=== PATIENT | male | born 1950 | race Caucasian/White ===

== ENCOUNTER 2016-03-15 01:07 | Day surgery (SDC) | payer OTHER ==
[2016-03-15] VITALS (12 sets, daily range): BP systolic 123–140; BP diastolic 59–71; PULSE 59–74; RESP 11–18; O2SAT 90–97
--- NOTE | 2016-03-15 06:30 | NUR ---
ADMISSION NOTE MALE PT ADMITTED FOR HEART CATH. DISCUSSED PLAN OF CARE WITH PT AND . SEE ADMIT AND FLOW SHEET
[2016-03-15] MEDS ORDERED: AMLO10TA3 PO (06:39)
[2016-03-15] MEDS ORDERED: METO25TA99 PO (06:39)
[2016-03-15] MEDS ORDERED: CHOL100043 PO (06:39)
[2016-03-15] MEDS ORDERED: losartan PO (06:39)
[2016-03-15] MEDS ORDERED: LIP40 PO (06:39)
[2016-03-15] MEDS ORDERED: HYDR25TA4 PO (06:39)
[2016-03-15] MEDS ORDERED: MELO-253 PO (06:39)
[2016-03-15] MEDS ORDERED: NITR0.4T6 SL (06:39)
[2016-03-15] MEDS ORDERED: METF500T4 PO (06:39)
[2016-03-15] MEDS ORDERED: ASPI-973 PO (06:39)
[2016-03-15 07:14] LABS: BASOPHILS % (AUTO) 0.4 % (0-3); EOSINOPHILS % (AUTO) 2.9 % (0-5); Mean Corpuscular Hemoglobin 30.8 pg (27.0-35.0); Mean Corpuscular Volume 90.7 fL (81-100); NEUTROPHILS % (AUTO) 53.3 % (40-74); Platelet Count 255 bil/L (150-400)
[2016-03-15] MEDS ORDERED: 0.9% Sodium Chloride 1,000 ML ONE (07:46)
[2016-03-15] MEDS ORDERED: Heparin 1,000 Units/500 mL NS Premix IV ONE (07:50)
[2016-03-15] MEDS ORDERED: Nitroglycerin 50,000 mcg/250 mL D5W Premix IV ONE (07:50)
[2016-03-15] MEDS ORDERED: Heparin 1,000 Unit/mL 10 mL Inj ONE (07:51)
[2016-03-15] MEDS ORDERED: Heparin 5,000 Units/500 mL NS Premix IV ONE (07:51)
[2016-03-15] MEDS ORDERED: fentaNYL-PF 50 mCg/mL 2 mL Inj ONE ×2 (08:35→09:23)
--- NOTE | 2016-03-15 10:09 | PCM.CVCATH ---
Cardiac Cath Report Date of Service Mar 15, 2016 Primary Indication Angina and abnormal stress test in a patient with diabetes Procedure coronary angiography, left heart cath Vascular Access Right radial artery using 6 Fr slender sheath, closure with TR band Right femoral artery using 6Fr sheath, closure with perclose suture. Diagnostic Catheters Left main: JL4, 6Fr from groin approach. Left main has high takeoff and Vale 4.5 and JL4 both could not engage the left main artery from right radial artery approach RCA: Vale 4.5, 5 Fr Procedure Details Coronary angiography details: The patient was brought to the cardiac catheterization lab in the fasting state. Patient was laid supine on the cardiac catheterization table and the right forearm was prepped and draped in the usual sterile fashion. One percent Xylocaine was infiltrated over the right radial artery. Vascular access was then achieved under ultrasound guidance. Guide wire was used to advance the catheter through the sheath and up into aortic sinuses. Right coronary artery was engaged after multiple attempts using Vale 4.5, JL4 and JL3.5 catheters. Study was switched to groin. One percent Xylocaine was infiltrated into the right femoral vessels. Next, a sheath was then placed in the right common femoral artery by the modified Seldinger technique. Guide wire was used to advance the catheter through the sheath and up into aortic sinuses. After coronary angiography was completed, guide wire was advanced through the catheter ahead of the tip of the catheter and the guide wire along with the catheter were pulled together out of the sheath. Medications/Fluoro Time Medications administered: 1.Fentanyl: 200 mcg IV 2. Midazolam: 4 mg IV 3. Heparin: 7000 units IV 4. Nitroglycerin: 400 mcg IA Fluoroscopy Time: 800-900 mGy Contrast (Isovue): 80 mls Blood loss: 10 mls Findings 1) Coronary angiography: Right dominance a. Left main has 10% stenosis at the ostium and 30-40% stenosis in the distal vessel. b. LAD has 90% calcific stenosis in the proximal vessel that extends to the mid vessel. The apical LAD has mild luminal irregularities. c. LCx has mild luminal irregularities d. RCA is normal caliber vessel with 80% stenosis in the distal RCA and 80% stenosis of the proximal PDA. The proximal segment of the upper branch of medium sized posterolateral branch also has 80-90% stenosis. 2) Left Heart catheterization: a. LVEDP is normal at 10 mmHg. b. No significant transaortic gradient on catheter pull-back. 3) Right femoral angiography: Right common femoral arteriotomy, below the inferior hypogastric artery. Complications There were no periprocedural complications identified. Summary 1) Two vessel obstructive disease in the LAD and RCA territories 2) Moderate non-obstructive disease in the left main artery Recommendations Proceed to cardiac surgery for urgent CABG copies to: Jenn Delaney MD, Bhrigu R MD Mar 15, 2016 10:09 Complications There were no periprocedural complications identified. Kamaljit Ward MD Mar 15, 2016 10:09
--- NOTE | 2016-03-15 10:15 | NUR ---
POST PROCEDURE NOTE RETURNED FROM [facility]. SEE FLOW SHEET
--- NOTE | 2016-03-15 14:45 | NUR ---
DISCHARGE NOTE INSTRUCTIONS GIVEN. IVS LEFT IN PER REQUEST FROM RN AT [facility]. REPORT GIVEN. TO REPORT TO [facility].
[2016-06-18] MEDS ORDERED: METO-274 PO (13:20)
[2016-06-18] MEDS ORDERED: FERR325T39 PO (13:20)
[2016-06-18] MEDS ORDERED: LORA-303 PO (13:20)
[2016-06-18] MEDS ORDERED: LOSA25TA21 PO (13:20)
== END 2016-03-15 23:59 | disposition home or self-care (01) ==
LOC: SOUO 01:07
PROVIDERS: ATTEND Internal Medicine Cardiovascular Disease
DX: I25.118 Atherosclerotic heart disease of native coronary artery with other forms of angina pectoris (principal); E11.22 Type 2 diabetes mellitus with diabetic chronic kidney disease; I12.9 Hypertensive chronic kidney disease with stage 1 through stage 4 chronic kidney disease, or unspecified chronic kidney disease; N18.9 Chronic kidney disease, unspecified; E78.5 Hyperlipidemia, unspecified; Z79.84 Long term (current) use of oral hypoglycemic drugs; Z79.82 Long term (current) use of aspirin; Z86.73 Personal history of transient ischemic attack (TIA), and cerebral infarction without residual deficits
CPT/HCPCS: 36415; 80048; 85025; 93458; C1760; C1769; C1887; C1894; J1644; J2250; J3010; Q9967

== ENCOUNTER 2016-06-21 00:32 | Day surgery (SDC) | payer OTHER ==
[~2016-06-21] VITALS: Ht 172.7 cm; Wt 75.5 kg
[2016-06-21] VITALS (13 sets, daily range): BP systolic 124–144; BP diastolic 60–72; PULSE 55–71; RESP 12–19; O2SAT 93–98
[~2016-06-21 00:32] MED LIST: ASPI-973 PO; FERR325T39 PO; HYDR25TA4 PO; LIP40 PO; LORA-303 PO; LOSA25TA21 PO; METF500T4 PO; METO-274 PO; NITR0.4T6 SL
[2016-06-21 12:10] LABS: BASOPHILS % (AUTO) 0.2 % (0-3); EOSINOPHILS % (AUTO) 1.5 % (0-5); MONOCYTES % (AUTO) 7.6 % (4-12); Mean Corpuscular Hemoglobin 29.1 pg (27.0-35.0); Mean Corpuscular Volume 89.6 fL (81-100); NEUTROPHILS % (AUTO) 56.1 % (40-74); Platelet Count 256 bil/L (150-400)
[2016-06-21] MEDS ORDERED: Heparin 1,000 Units/500 mL NS Premix IV ONE (12:28)
[2016-06-21] MEDS ORDERED: Heparin 10,000 Unit/1,000 mL NS Premix IV ONE (12:28)
[2016-06-21] MEDS ORDERED: Heparin 1,000 Unit/mL 10 mL Inj ONE (12:29)
--- NOTE | 2016-06-21 12:40 | NUR ---
SHARI admit Admitted to [facility] about 1135. VSS. Denies pain. Stated mild chest discomfort that spontaneously resolved on lying down. Tele SB with 1st degree AVB. IV's started and labs sent. See EMR for further info and assessment. Procedure and recovery reviewed and questions answered. Pt. to garden labourer about 1240. Addendum: 06/21/16 at 1556 by SELENA HERRERA RN BG 118 per fingerstick.
[2016-06-21] MEDS ORDERED: fentaNYL-PF 50 mCg/mL 2 mL Inj ONE ×2 (12:53→14:23)
[2016-06-21] MEDS ORDERED: Labetalol 5 mg/mL 20 mL Inj ONE (13:40)
--- NOTE | 2016-06-21 15:04 | PCM.CVCATH ---
Cardiac Cath Report Date of Service June 21, 2016 Primary Indication Angina, abnormal stress test after 2V CABG Procedure coronary angiography, left heart cath Vascular Access Right femoral arteryusing 5 Fr sheath, closure with manual hold. Diagnostic Catheters Left main: JL 3.5, 5Fr (after failure with JL 4, 5Fr) RCA: JR4, 5Fr SVG to RCA graft: JR4, 5Fr ROJAS graft: BERTHA 5Fr (after failure to engage with JR4 catheter) Procedure Details Coronary angiography details: The patient was brought to the cardiac catheterization lab in the fasting state. Patient was laid supine on the cardiac catheterization table and the right groin was prepped and draped in the usual sterile fashion. One percent Xylocaine was infiltrated into the right femoral vessels. Next, a sheath was then placed in the right common femoral artery by the modified Seldinger technique. Guide wire was used to advance the catheter through the sheath and up into aortic sinuses. After coronary and bypass angiography were completed, guide wire was advanced through the catheter ahead of the tip of the catheter and the guide wire along with the catheter were pulled together out of the sheath. Medications/Fluoro Time Medications administered: 1.Fentanyl: 150 mcg IV 2. Midazolam: 3 mg IV 3. Heparin: 5000 units IV Fluoroscopy Time: 18.7 minutes, 1244 mGy Contrast (Isovue): 150 mls Blood loss: 10 mls Findings 1) Coronary and bypass angiography: Right dominant coronary anatomy a. Left main has 10-20% ostial stenosis and 50-60% stenosis in the mid to distal vessel b. LAD is heavily calcific with diffuse 80-90% stenosis with XAVIER 1 to XAVIER 2 flow. No retrograde flow to the ROJAS graft noticed. c. LCx is medium caliber with mild luminal irregularities. d. RCA is normal caliber vessel with 99% distal RCA stenosis. e. SVG to PDA graft is open with no significant angiographic disease in the SVG graft or the PDA artery f. ROJAS to the LAD graft is open but the anastomosis is moderately diseased and the LAD past anastomosis is also severely diseased. 2) Left Heart catheterization: a. LVEDP is elevated at 26 mmHg. b. No significant transaortic gradient on catheter pull-back. 3) Right groin: common femoral arteriotomy just at the bifurcation of the superficial femoral and profunda branches. Complications There were no periprocedural complications identified. Summary 1) Severe [place] coronary artery disease with LCx still not revascularized. The distal LAD after ROJAS anastomosis remains severely diseased. 2) Patent bypass grafts (ROJAS and SVG) Recommendations 1) Maximize medical management. 2) Refer to cardiology for 2nd opinion. copies to: Jenn Delaney MD, Bhrigu R MD June 21, 2016 15:04 Kamaljit Ward MD June 21, 2016 15:04
--- NOTE | 2016-06-21 15:56 | NUR ---
Received Received from oven laborer about 1510. Pt. had post procedure hematoma in woods laborer, now full but soft. Denies pain. VSS. Tele SR. Taking po fluids well. Dr. Ward in and ice pack ordered and applied to groin. Awaiting orders. Continue to monitor per protocol.
[2016-06-21] MEDS ORDERED: RANO500T3 PO (16:47)
--- NOTE | 2016-06-21 20:10 | NUR ---
Discharge VSS and right groin hematoma unchanged. Bedrest complete at 1999. Up to void and ambulate in bolanos. States slightly sore but no acute pain. Discharge instructions given, see sheets, verbalizes understanding. IV's discontinued intact. Discharged ambulatory with all belongings and in no acute distress.
== END 2016-06-21 23:59 | disposition home or self-care (01) ==
LOC: SOUO 00:32 → EDSTATUS 12:46 → SOUO 23:59
PROVIDERS: ATTEND Internal Medicine Cardiovascular Disease
DX: I25.119 Atherosclerotic heart disease of native coronary artery with unspecified angina pectoris (principal); I25.729 Atherosclerosis of autologous artery coronary artery bypass graft(s) with unspecified angina pectoris; I25.5 Ischemic cardiomyopathy; I10 Essential (primary) hypertension; E78.5 Hyperlipidemia, unspecified; I50.20 Unspecified systolic (congestive) heart failure; E11.9 Type 2 diabetes mellitus without complications; F41.8 Other specified anxiety disorders; Z79.82 Long term (current) use of aspirin; Z79.84 Long term (current) use of oral hypoglycemic drugs; Z86.73 Personal history of transient ischemic attack (TIA), and cerebral infarction without residual deficits
CPT/HCPCS: 36415; 80048; 85025; 93459; 99152; 99153; C1769; J1644; J2250; J3010; Q9967

== ENCOUNTER 2016-07-10 04:56 | Inpatient (IN) | payer OTHER ==
[2016-07-10] VITALS (11 sets, daily range): BP systolic 103–172; BP diastolic 61–81; PULSE 51–67; RESP 13–19; O2SAT 95–98
[~2016-07-10] VITALS: Ht 172.7 cm; Wt 78.9 kg
[~2016-07-10 04:56] MED LIST changes: +RANO500T3 PO
[2016-07-10] MEDS ORDERED: Senna-Docusate 8.6-50 mg Tablet PO PRN (06:25)
[2016-07-10] MEDS ORDERED: Alum-Mag Hydrox-Simeth 30 mL Suspension PO PRN (06:25)
[2016-07-10] MEDS ORDERED: Polyethylene Glycol (PEG) 17 Gm Powder PO PRN (06:25)
[2016-07-10] MEDS ORDERED: Ondansetron 2 mg/mL 2 mL Inj IVPUSH PRN (06:25)
[2016-07-10] MEDS ORDERED: Atropine 1 mg/10 mL (Code) Syringe IVPUSH PRN (06:25)
[2016-07-10] MEDS ORDERED: Nitroglycerin 50,000 mcg/250 mL D5W Premix IV ONE (06:33)
[2016-07-10] MEDS ORDERED: Heparin Protocol Boluses IVPUSH PRN (06:50)
[2016-07-10 07:13] LABS: BASOPHILS % (AUTO) 0.4 % (0-3); EOSINOPHILS % (AUTO) 1.6 % (0-5); MONOCYTES % (AUTO) 4.9 % (4-12); Mean Corpuscular Volume 91.3 fL (81-100); NEUTROPHILS % (AUTO) 66.9 % (40-74); Platelet Count 265 bil/L (150-400)
[2016-07-10] MEDS: 0.9% Sodium Chloride 1,000 ML IV SCH ×3 (07:22→23:48)
[2016-07-10] MEDS: Heparin 25K Unit/500mL 0.45 NS 25,000 UNIT in IV Premix 1 EACH IV SCH (07:23)
[2016-07-10] MEDS: Sodium Chloride LOK Flush 10 mL Syringe IVFLUSH SCH ×3 (07:24→23:48)
[2016-07-10 08:03] LABS: Creatine Kinase 73 U/L (21-232); Magnesium 1.8 mg/dL (1.6-2.6)
[2016-07-10] MEDS ORDERED: ISOS60TA2 PO (08:16)
[2016-07-10] MEDS ORDERED: LORazepam 0.5 mg Tablet PO PRN (13:00)
--- NOTE | 2016-07-10 13:10 | PCM.HPMED ---
Subjective Date of Service Jul 10, 2016 Primary Provider: Admitting Physician: Sunny Tran MD Primary Care Physician: Jenn Delaney MD Attending Physician: Sunny Tran MD Chief Complaint: Chest pain History of Present Illness: 65 y/o with past medical history of CAD sp CABG, hypertension, NIDDM type II , hypertension, h/o TIA, hypercholesterolemia presented initially to [facility] emergency department complaining of chest pain . Patient stated he had chest pain last night around 11 pm . He took his usual nitroglycerine with some relief but shortly after he continue to have chest pain and took another nitro. He stated he usually get good relief with one nitro and was also placed recently on Isosorbide mononitrate by his primary application spec and hes has been complaint with it. He decided to go to the ER as his chest continue to persist after a total of 6 doses of nitroglycerine . In the ER he was placed on nitro drip with improvement. He describes the chest pain as Pressure like , retrosternal, non radiating , no aggravating factor. Patient usually walks over a mile daily and he said he experiences little to no angina with activities . He is known to have extensive CAD . He had a recent cardiac cath done with his primary application spec Dr Ward and was referred to the for higher level of care. Per patient he has an appointment on the July/2016. Patient was transferred here for cardiology evaluation. EKG shows old infarcts and initial troponin is negative. Review of Systems: Review of system is pertinent for chest pain , otherwise a comprehensive review 10 points is negative Allergies Coded Allergies: No Known Allergies (Unverified , 06/21/16) Home Medications Aspirin 81 mg Po daily Atorvastatin 80 mg PO daily HCTZ 12.5 mg PO daily Ferrous Sulfate 25 mg PO daily Isosorbide mononitrate ER 60 mg PO daily Lorazepam 0.5 mg Q6H PRN for anxiety Metformin 859 mg PO twice daily PMH 1. Hypertension 2 CAD s/p CABG 3. Type III Diabetes 4. Hypercholesterolemia 5. Hypertension 6. H/o TIA Surgical History CABG Family History Reviewed and is non contributory Social History Hx Alcohol Use: Yes Alcoholic Drinks Per Day: 1-2 drinks/day - beer or wine Hx Substance Use: No Smoking Status: Never Smoker Living Arrangement: with Family Exam Vital Signs Vital Sign - Last Date Time Temp Pulse Resp B/P Pulse Ox O2 Delivery O2 Flow Rate FiO2 07/10/16 11:57 36.6 58 15 140/77 97 Room Air Exam Gen : Well nourished male . In bed comfortably . NAD HEENT : Normocephalic , MACI. Sclerae is anicteric Mouth : Moist oral mucosae, no oral thrush Neck : Supple, no JVD , no carotid bruit , trachea is midline Chest : No deformity. Midline surgical scar compatible with h/o CABG . Normal respiratory effort Lung : Clear bilaterally, no crackles, no wheezing. Heart : S1S2, RRR, no gallop Abdomen : Non tender, non distended . BS normal all quadrants Ext : No edema, No cyanosis Neuro : Grossly non focal. AAO x 3 Lab and Diagnostics Result Diagram: 07/10/1664407/10/16 0645 X-Rays, CTs and MRIs Chest X-ray pending. Ekg reviewed : Non specific .No ST changes Assessment & Plan 1. Unstable Angina 2. H/o CAD s/p CABG 3. Type II diabetes ( Non insulin depending) 4. Hypertension 5. H/o TIA 65 y/o with extensive h/o of CAD s/p CABG , [facility] to [facility] for unstable angina . Patient is hemodynamically and clinically stable . On heparin drip and nitroglycerine drip . Patient still with angina but improved he said. Consider Ranexa once off Nitro drip . He was on Isosorbide prior admission Continue statins , BB, ARB, aspirin. Case discussed with quality assurance consultant application spec Dr. Fitzgerald , who will see the patient in consolation. Dr Ward is his primary application spec. Patient stated he had a recent cardiac catheterization done and was referred to the [facility] for further evaluation as , thing the management and higher level of care given the extension of his CAD . In any case patient has an appointment for the 20 of July at Start Diabetic diet and sliding sale insulin with coverage. Hold Metformin Home medications reviewed and reconciled This is an initial plan of care for now and will be adjust per clinical course and per cardiology recommendation Pain Evaluation: Adequate Pain Control VTE Prophylaxis: Other (On heparin drip ) Resuscitation Status: CPR: Attempt Resuscitation Time spent 75 minutes Phil Koenig MD Jul 10, 2016 13:10
[2016-07-10 13:38] LABS: Creatine Kinase 74 U/L (21-232)
[2016-07-10 13:39] LABS: TROPONIN T < 0.010 ug/L (0.0-0.011)
--- NOTE | 2016-07-10 14:47 | DRSVH ---
PROCEDURE: X-RAY CHEST ONE VIEW, PORTABLE ([id number]) INDICATIONS: Chest pain TECHNIQUE: One view of the chest was acquired. COMPARISON: None. FINDINGS: Surgical changes and devices: Status post CABG procedure. Lungs and pleura: No pleural effusions or pneumothorax. Lungs are clear. Mediastinum: Mediastinal contours appear normal. Heart size is normal. Bones and chest wall: No suspicious bony lesions. Overlying soft tissues appear unremarkable. IMPRESSION: No acute cardiopulmonary disease process. Dictated by: Sweta Padilla MD, PhD on 07/10/2016 at 14:34 Approved by: Sweta Padilla MD, PhD on 07/10/2016 at 14:34
--- NOTE | 2016-07-10 17:32 | NUR ---
Admit/Nitro/Hep the pt was admitted to P[facility]U as an IMCU pt at 0630. At shift trade, the pt was at 15mcg Nitro gtt, and was up to 25 this afternoon to relieve persistent chest pain. After a consult with Dr. Fitzgerald, we are titrating the nitro down in an attempt to DC the pt home for a possible follow up with . Heparin is running on the cardiac protocol at 1100.
[2016-07-10] MEDS: MeTOProlol XL 50 mg ER24 Tablet PO SCH (20:00)
--- NOTE | 2016-07-10 20:19 | CONS ---
[address] [address] CONSULTATION REPORT PATIENT: AIDA CARUSO : 1950 MR#: [id number] ADMIT: 07/10/2016 JOB ID: [id number] DATE OF SERVICE: 07/10/2016 REASON FOR CONSULT: I am asked to consult on this patient given unstable anginal symptoms. HISTORY OF PRESENT ILLNESS: The patient is a 65-year-old man with history of coronary disease, diabetes mellitus, hypertension, history of TIA, and elevated lipids. He has a history of coronary disease which before his cardiac cath and bypass procedure was very limiting. He tries to remain very active and his symptoms got progressively worse to the point where he could barely do anything without chest discomfort. This resulted in a cardiac catheterization which revealed a high-grade LAD stenosis as well as a distal right coronary artery stenosis. There was no significant left main disease and no significant circumflex disease. Because of the diffuse nature of the disease, the patient was sent for coronary bypass grafting. Apparently the procedure was quite difficult but they were able to get a ROJAS tied into the left anterior descending artery. The right coronary artery was diffusely diseased and targets were not felt to be very good. However, because of instability, a reverse saphenous vein graft was placed to the left ventricular extension branch. The patient said that since surgery he has actually been participating in rehab and as far as walking on flat surfaces he has had no problem at all. It is when he is going up hills that he gets the chest discomfort. As a result of this, he had Imdur added which has helped to some extent, although he will still get some chest pain if her really forces himself up a hill. He had a repeat stress test performed in June 2012. I have reviewed the images myself and it looks like there is ischemia in the inferoseptal area, as well likely in the anterolateral segment. The EF was estimated at 40%. Apparently the patient also had abnormal response to stress as well as EKG changes. This led to cardiac catheterization and revealed a widely patent ROJAS to LAD. Again no significant disease of the left main or circumflex artery. There was a widely patent graft which goes to the extension branch, not to the PDA, and the nome right coronary artery is nearly occluded at the entrance at the bifurcation. There is evidence for some collateral filling of the PDA. On limited views of the left anterior descending artery it appears there is a diagonal branch which is not bypassed but comes off after high-grade stenosis of the left anterior descending artery. The ROJAS to LAD is widely patent and the left anterior descending artery does fill retrograde up to the level of occlusion. Unfortunately the images are transient and it is not apparent to me that the left anterior descending fills retrograde The patient came into the hospital this time because unlike the usual episodes of chest discomfort he started getting chest discomfort that was not relieved with nitroglycerin. He has been placed on a nitro drip with relief of symptoms. He tells me has had about 1/10 discomfort at this time He has also been getting chest discomfort at night. He has a history of sleep apnea but has not used CPAP for a while now. He says he lost weight after bypass and did not feel that he needed it. He denies any problems with orthopnea, PND, lower extremity edema, palpitations, presyncope, syncope PAST MEDICAL HISTORY/PROBLEM LIST: 1. Hypertension. 2. History of coronary disease, status post bypass. 3. Diabetes. 4. Hyperglycemia and hypertension. 5. Also has a history of TIA. MEDICATIONS: At home included: 1. Aspirin 81 mg a day. 2. Atorvastatin 80 mg daily. 3. Hydrochlorothiazide 12.5 daily. 4. Ferrous sulfate. 5. Imdur 60 mg daily. 6. Lorazepam 0.5 q.6 p.r.n. anxiety. 7. Metformin. ALLERGIES: No known drug allergies. SOCIAL HISTORY: Never smoker. Drinks maybe 1-2 drinks at most a day. FAMILY HISTORY: No early coronary disease. REVIEW OF SYSTEMS: Overall health: No fevers, chills, night sweats, or weight loss. GI: No problems with ulcers or blood in his stool. : No dysuria, hematuria. Pulmonary: No increased shortness of breath. No history of asthma or wheezing. Neuro: History of TIA but no symptoms at this time. No chronic headaches. Endocrine: No heat or cold intolerance. Is treated for diabetes mellitus. Musculoskeletal: No joint issues. Derm: No rashes or skin breakdown. ENT: No sore throat, difficulty swallowing. Ophtho: No acute vision issues. Heme: No easy bruising or bleeding. Psych: No acute issues. All other review of systems on a 12-point review of system are negative. PHYSICAL EXAMINATION: His blood pressure is 140/77. He is afebrile. Heart rate 58, sats are 97% on room air. General: In no acute distress. Speaking in full sentences without apparent shortness of breath. Head and neck exam: Normocephalic, atraumatic. I do not appreciate obvious JV distention. Heart exam: Regular rate and rhythm. I do not appreciate murmurs, gallops, rubs appreciated. Lungs sound clear. Back: No CVA tenderness to palpation. Abdomen soft, nontender. Vascular: Carotids without bruits appreciated. Skin: No rashes or breakdown. Neuro: Alert and oriented x3. Gait is not tested. Psych: Appropriate mood and affect. ENT: Mucous membranes moist. No erythema in the oropharynx. Ophtho: Vision grossly intact. CURRENT MEDICATIONS: Include: 1. Aspirin 81 mg a day. 2. Heparin. 3. Metoprolol 100 mg b.i.d. 4. Losartan 25 daily. 5. Imdur 60 mg was being held while he is on IV nitrates. 6. Lipitor 80 mg a day. LABORATORIES: Show white count 9.7, H and H 12.4 and 37.8, platelets of 265,000. Chemistry shows a sodium 141, potassium 4.2, chloride and bicarb 103 and 20, respectively. BUN and creatinine 15 and 0.65. Troponins all negative. IMAGING: Chest x-ray shows no acute cardiopulmonary disease. Stress imaging as noted. Cath as noted. EKG shows sinus rhythm, subtle changes in the inferior leads. IMPRESSION: The patient has a history of bypass grafting but only received a left internal mammary artery to left anterior descending. The bypass graft to the left extension branch was done acutely in the setting of being hemodynamically unstable. Posterior descending artery is not grafted. He has evidence for inferior septal ischemia on a stress test. He has probable evidence for anterolateral ischemia and this may be related to a diagonal branch which is fed by the nome vessel antegrade. My sense is that his symptoms may be related to the PDA which is a looking near occluded. It now has collaterals. I am not sure if the unbypassed diagonal is contributing PLAN: 1. He has ruled out by serial cardiac markers. Again my sense is that the PDA may be causing most of his problems (not sure if the diagonal is a contributor) Otherwise, he has reasonable revascularization with a ROJAS to LAD and extension branch. No significant disease of the nome circ He has an appointment at [facility] in the middle of July to discuss possible repeat cath and interventions. I told him that the right coronary artery, at least in the area of interest was fairly small in caliber and they could possibly do a balloon angioplasty or put a stent in there but it would likely be challenging. I am not certain if they would attempt to stent the diagonal branch which is also relatively small in caliber. He feels that the [facility] would provide more advanced care and he has already been referred there so he would like to be considered to be discharged and go there for followup. 2. Try to get him off his nitro drip. We can add back his isosorbide mononitrate. We might need to increase this, if possible. 3. I think we then should see if he can walk around without chest pain, chest pressure, and make sure that he does not have any chest discomfort at rest. I have advised him that he needs to go back on CPAP because I think some of his symptoms at night might be related to hypoxia related to obstructive sleep apnea. 4. If he does not do well off nitroglycerin or has recurrent unstable symptoms, options would be to send him to the [facility] to see if they would be able to place stents in the vessels discussed above. Other options would be for us to take him back to the cath laboratory and investigate those options here, but again the patient is under the impression that it will be a better circumstance for him to go to the [facility]. I spent an hour going over the patient's previous stress test, cardiac catheterizations, speaking with him, reviewing his EKG, examining him, and discussing his situation at length, including the options. FROYLAN
[2016-07-10] MEDS: Nitroglycerin 50 mg/250 mL D5W Premix IV SCH (21:45)
[2016-07-11] MEDS: Nitroglycerin 50 mg/250 mL D5W Premix IV SCH (03:18)
[2016-07-11] MEDS: Heparin 25K Unit/500mL 0.45 NS 25,000 UNIT in IV Premix 1 EACH IV SCH (03:24)
[2016-07-11 03:30] VITALS: BP 114/61; PULSE 51; RESP 15; O2SAT 96
--- NOTE | 2016-07-11 05:31 | NUR ---
Chest pain/Nitro gtt Nitro gtt at 15 mcg/min during start of shift. Weaned down to 10mcg/min. Pt started to report chest discomfort as high as 7-8/10 after about 30-40 mins. He started getting anxious and in distress. Hypertensive. Increased nitro gtt as high as 75 mcg/min. 1 mg of Morphine given. Pt reported chest pain free during reassessment. Dr Fitzgerald made aware with new orders noted. No c/o headache. Maintained Nitro gtt rate at 70 mcg/min at this time. Maintaining Map > 65. SB mid 40s to 50s tonight. Addendum: 07/11/16 at 0649 by OMAR LOPEZ RN No c/o chest pain since last night. Pt denies any dizziness or headache.
[2016-07-11 05:48] VITALS: PULSE 51
[2016-07-11 08:16] VITALS: BP 122/63; PULSE 57; RESP 21; O2SAT 98
[2016-07-11] MEDS: Sodium Chloride LOK Flush 10 mL Syringe IVFLUSH SCH (08:19)
[2016-07-11] MEDS: MeTOProlol XL 50 mg ER24 Tablet PO SCH (08:28)
[2016-07-11] MEDS ORDERED: Isosorbide Mononitrate 60 mg ER24 Tablet PO SCH (08:30)
[2016-07-11 10:15] VITALS: PULSE 56
[2016-07-11 12:41] VITALS: BP 118/62; PULSE 53; RESP 19; O2SAT 95
--- NOTE | 2016-07-11 14:07 | PCM.PNMED ---
Subjective Date of Service Jul 11, 2016 Subjective Patient seen and examined at bedside with assigned nurse He still with severe chest pain and continue on nitroglycerine drip. No shortness of breath, no fever, no chills. Patient is requesting transfer to [facility] for higher level of care. Transfer is being arranged cardiology team Exam Vital Signs Vital Sign - Last Date Time Temp Pulse Resp B/P Pulse Ox O2 Delivery O2 Flow Rate FiO2 07/11/16 12:41 53 19 118/62 95 Room Air 07/11/16 08:16 36.9 Intake and Output 07/10/16 07/10/16 07/11/16 Cumulative From/Thru 15:00 23:00 07:00 07/10/16 06:47 - 07/11/16 06:44 Intake Total 700 ml 2413 ml 3113 ml Output Total 700 ml 790 ml 1490 ml Balance 0 ml 1623 ml 1623 ml Intake Oral 700 ml 340 ml 1040 ml IV Total 2073 ml 2073 ml Output Urine Total 700 ml 790 ml 1490 ml # Bowel Movements 0 0 Exam Gen : . In bed comfortably . NAD . AAOx 3 HEENT :MACI. Sclerae is anicteric Mouth : Moist oral mucosae, no oral thrush Neck : Supple, no JVD Chest : Normal respiratory effort Lung : Clear bilaterally, no crackles, no wheezing. Heart : S1S2, RRR, no gallop Abdomen : Benign . BS normal all quadrants Ext : No edema, No cyanosis , no calf tenderness Neuro : AAO x 3, non focal IVs and Medications Medications Reviewed: Medications were reviewed in detail Lab and Diagnostics Result Diagram: 07/11/1645 07/10/1645 X-Rays, CTs and MRIs Chest X-ray pending. Ekg reviewed : Non specific .No ST changes Assessment & Plan 1. Unstable Angina 2. H/o CAD s/p CABG 3. Type II diabetes ( Non insulin depending) 4. Hypertension 5. H/o TIA 65 y/o with extensive h/o of CAD s/p CABG , [facility] for unstable angina . Patient is hemodynamically and clinically stable but still with severe angina . He continued on nitro drip at [facility] this morning . BP so far holding with systolic around 120. . Discused with cardiology Dr Fitzgerald , potentially to be transferred to once bed available. Arrangement in process Continue statins , BB, ARB, aspirin. Dr Ward is his primary net application architect. Patient stated he had a recent cardiac catheterization done and was referred to the [facility] for further evaluation as Dr, thing the management and higher level of care given the extension of his CAD . Diabetic diet and sliding sale insulin with coverage for diabetic control. Hold Metformin Home medications reviewed and reconciled ( See orders Hoepfully we can wean him off Nitroglycerine drip , or to a lover dose to facilitate transfer Patient is otherwise hemodynamically stable and ruled out for ACS with serial troponin VTE Prophylaxis: Other (On heparin drip ) Resuscitation Status: CPR: Attempt Resuscitation Time spent 35 minutes Phil Koenig MD Jul 11, 2016 14:07
--- NOTE | 2016-07-11 14:13 | PROG NOTE ---
[address] [address] PROGRESS NOTE PATIENT: AIDA CARUSO : 1950 MR#: [id number] ADMIT: 07/10/2016 JOB ID: [id number] DATE: 07/11/2016 CHIEF COMPLAINT: The patient came in with unstable anginal symptoms. EVENTS: Later last night after we were trying to titrate down the nitroglycerin, the patient developed acute worsening of his chest pain which required increased backup of the nitroglycerin drip. He was also given a dose of morphine. EKG today shows some T-wave changes in the high lateral leads. He continues to show Q-waves inferiorly. He is doing well without chest pain at this time. Troponins were not sent. CURRENT MEDICATIONS: Include: 1. Losartan 25 daily. 2. Hydrochlorothiazide 12.5 daily. 3. Aspirin 81 mg a day. 4. Heparin drip. 5. Nitroglycerin drip. 6. Morphine p.r.n. 7. Metoprolol succinate 100 b.i.d. It was held this morning due to bradycardia. He is not on Imdur right now. It is being held because he is on nitroglycerin drip. 8. Lipitor 80 mg q.h.s. LABORATORY DATA: Show H and H 11.3 and 35.2. Chemistry shows lipid panel with triglycerides 94, LDL 53, and HDL 47. TSH 2.4. No new imaging today. PHYSICAL EXAMINATION: Blood pressure is 122/63, heart rate 57, sats are 98% on room air. General: In no acute distress. Speaking in full sentences without apparent shortness of breath. Head and neck exam: Normocephalic, atraumatic. Neck: No JV distention. Heart exam: Regular rate and rhythm. Lungs clear. Abdomen is soft. Back: No CVA tenderness to palpation. Extremities: Warm without edema. Vascular: No carotid bruits appreciated. Neuro: Alert and oriented x3. Gait is not tested. Psych: Appropriate mood and affect. EKG is discussed. IMPRESSION: The patient has history of bypass surgery in March of 2016, and repeat stress imaging showed inferior ischemia, as well as lateral probably anterolateral ischemia. He has a nonrevascularized PDA and nonrevascularized diagonal branch. My suspicions originally was that the PDA was likely causing his symptoms given the large area of inferior ischemia that was noted on the stress test. Now, he has some flipped high lateral T-wave changes which may be related to lateral branch, possibly the diagonal. He has a patent ROJAS to LAD and a patent saphenous vein graft extension branch. PLAN: I discussed our options with the patient. I told him that we could try to get him down to the [facility] so he could get another opinion as to the ability to fix the vessels that may be causing his problems. If the PDA is in fact involved, it does look small. I think it is a possibility that with balloon angioplasty, the size of this will improve so that it could take a stent. I am not certain if the diagonal is causing symptoms. By review of the cath films, it did not look like the circumflex had any critical stenoses at all. The diagonal looks like it comes off after the stenosis in the LAD. After a long discussion, we agreed that I would try to get him transferred to the [facility]. I spent at least 3 hours speaking with various people at the [facility] transfer center, two attendings, to discuss his case, and he has been accepted for transfer there at this juncture. PLAN: 1. Transfer to [facility]. We will keep his current medications as they are. 2. We have provided them with the initial cath, the followup cath after bypass, as well as the nuclear images from June of 2016. We will await their recommendations/treatments, and he can follow up with his primary lawnmower repair mechanic, Dr. Ward, after that. Again, I spent at least 3 hours talking with the patient today and making multiple phone calls to arrange for his transfer to the [facility]. FROYLAN
--- NOTE | 2016-07-11 14:13 | NUR ---
Transfer The pt transferred to [facility] at 1415 for cardiac care. The pt left the unit with VSS and WNL for the pt. He left with NS at 80mLs/hr, heparin at 1175 units/hr and Nitro at 40mcg/hour. the pt left by ALS. Report called to [facility].
--- NOTE | 2016-07-12 17:12 | PCM.DC.MED ---
Discharge Summary Date of Service Jul 12, 2016 Dates of Hospitalization Date of Hospital Admission Jul 10, 2016 at 06:23 Date of Discharge: Jul 12, 2016 Providers: Admitting Physician: Sunny rTan MD Primary Care Physician: Jenn Delaney MD Attending Physician: Sunny Tran MD Diagnosis at Time of Discharge Diagnosis at Time of Discharge 1. Unstable Angina 2. H/o CAD s/p CABG 3. Type II diabetes ( Non insulin depending) 4. Hypertension 5. H/o TIA Consultations Cardiology Procedures XRay, CTs & MRIs Chest X-ray pending. Ekg reviewed : Non specific .No ST changes Brief History 65 y/o with past medical history of CAD sp CABG, hypertension, NIDDM type II , hypertension, h/o TIA, hypercholesterolemia presented initially to [facility] emergency department complaining of chest pain . Patient stated he had chest pain last night around 11 pm . He took his usual nitroglycerine with some relief but shortly after he continue to have chest pain and took another nitro. He stated he usually get good relief with one nitro and was also placed recently on Isosorbide mononitrate by his primary director of rotc and hes has been complaint with it. He decided to go to the ER as his chest continue to persist after a total of 6 doses of nitroglycerine . In the ER he was placed on nitro drip with improvement. He describes the chest pain as Pressure like , retrosternal, non radiating , no aggravating factor. Patient usually walks over a mile daily and he said he experiences little to no angina with activities . He is known to have extensive CAD . He had a recent cardiac cath done with his primary director of rotc Dr Ward and was referred to the for higher level of care. Per patient he has an appointment on the July/2016. Patient was transferred here for cardiology evaluation. EKG shows old infarcts and initial troponin is negative. Hospital Course 1. Unstable Angina 2. H/o CAD s/p CABG 3. Type II diabetes ( Non insulin depending) 4. Hypertension 5. H/o TIA 65 y/o with extensive h/o of CAD s/p CABG , transferred form Tuesday [facility] to [facility] for unstable angina . Patient is hemodynamically and clinically stable but still with severe angina . He continued on nitro drip at [facility] this morning . BP so far holding with systolic around 120. . Discused with cardiology Dr Fitzgerald , potentially to be transferred to once bed available. Arrangement in process Continue statins , BB, ARB, aspirin. Dr Ward is his primary director of rotc. Patient stated he had a recent cardiac catheterization done and was referred to the [facility] for further evaluation as Dr, thing the management and higher level of care given the extension of his CAD . Diabetic diet and sliding sale insulin with coverage for diabetic control. Hold Metformin Home medications reviewed and reconciled ( See orders Patient is otherwise hemodynamically stable and ruled out for ACS with serial troponin Patient is transferred to in stable condition Exam Vital Signs (Last) Date Time Temp Pulse Resp B/P Pulse Ox O2 Delivery O2 Flow Rate FiO2 07/11/16 12:41 53 19 118/62 95 Room Air 07/11/16 08:16 36.9 Exam Gen : . In bed comfortably . NAD . AAOx 3 HEENT :MACI. Sclerae is anicteric Mouth : Moist oral mucosae, no oral thrush Neck : Supple, no JVD Chest : Normal respiratory effort Lung : Clear bilaterally, no crackles, no wheezing. Heart : S1S2, RRR, no gallop Abdomen : Benign . BS normal all quadrants Ext : No edema, No cyanosis , no calf tenderness Neuro : AAO x 3, non focal Test 07/10/16 06:45 07/10/16 12:37 07/11/16 06:45 White Blood Count 9.7th/mm3 (3.8-10.1) Red Blood Count 4.14mil/mm3 (4.40-5.80) Mean Corpuscular Volume 91.3fL (81-100) Mean Corpuscular Hemoglobin 30.0pg (27.0-35.0) Mean Corpuscular Hemoglobin Concent 32.8% (32.0-37.0) Red Cell Distribution Width 14.3% (12.3-15.4) Platelet Count 265bil/L (150-400) Neutrophils (%) (Auto) 66.9% (40-74) Lymphocytes (%) (Auto) 26.1% (14-46) Monocytes (%) (Auto) 4.9% (4-12) Eosinophils (%) (Auto) 1.6% (0-5) Basophils (%) (Auto) 0.4% (0-3) Sodium Level 141mEq/L (134-144) Potassium Level 4.2mEq/L (3.5-5.2) Chloride Level 103mEq/L (97-108) Carbon Dioxide Level 21mmol/L (18-29) Blood Urea Nitrogen 15mg/dL (8-27) Creatinine 0.65mg/dL (0.76-1.27) Estimat Glomerular Filtration Rate 131mL/min (>59) Glucose Level 164mg/dL (60-99) Hemoglobin A1c 6.9% (4.8-5.6) Calcium Level 9.2mg/dL (8.5-10.1) Magnesium Level 1.8mg/dL (1.6-2.6) Thyroid Stimulating Hormone (TSH) 2.430uIU/mL (0.450-4.500) Total Creatine Kinase 74U/L (21-232) Creatine Kinase MB 1.9ng/mL (0.0-10.4) Creatine Kinase MB % % (0.0-5.0) Troponin T < 0.010ug/L (0.0-0.011) Hemoglobin 11.3g/dL (13.8-17.2) Hematocrit 35.2% (41.0-50.0) Activated Partial Thromboplast Time 62.2sec (22.8-33.0) Triglycerides Level 94mg/dL (0-149) Cholesterol Level 119mg/dL (100-199) LDL Cholesterol, Calculated 53.200mg/dL (0-99) VLDL Cholesterol 18.800mg/dL HDL Cholesterol 47mg/dL (>39) Cholesterol/HDL Ratio 2.53 (0.0-4.4) Discharge Medications Discharge Medications Aspirin (Aspirin) 81 Mg Tablet 162 MG PO DAILY (Reported) Atorvastatin (Lipitor) 40 Mg Tablet 80 MG PO DAILY (Reported) Ferrous Sulfate (Iron) 325 Mg Tablet 325 MG PO DAILY (Reported) Hydrochlorothiazide (Hydrochlorothiazide) 25 Mg Tablet 12.5 MG PO DAILY ( Reported) Isosorbide MN ER (Isosorbide MN ER) 60 Mg Tab.er.24h 60 MG PO DAILY (Reported) Losartan Potassium (Losartan Potassium) 25 Mg Tablet 25 MG PO QPM (Reported) Metformin (Metformin) 500 Mg Tablet 850 MG PO BID (Reported) Metoprolol Succinate ER (Metoprolol Succinate ER) 100 Mg Tab.er.24h 100 MG PO BID (Reported) As needed Lorazepam (Ativan) 1 Mg Tablet 0.5 MG PO TID PRN PRN For Anxiety (Reported) Miscellaneous Medications Nitroglycerin SL (Nitroglycerin SL) 0.4 Mg Tab.subl 0.4 MG SL (Reported) Followup Plan Disposition: Transferred to for higher level of care Follow-up plan Per discharge instruction from [facility] hospital Discharge Diet: Low fat, Low Sodium, Heart Healthy Time spent 35 minutes Patient seen and examined on the day of discharge Phil Koenig MD Jul 12, 2016 17:12
== END 2016-07-11 14:29 | disposition short-term general hospital (02) | DRG 303 ==
LOC: PCC 06:23
PROVIDERS: ADMIT Hospitalist; ATTEND Internal Medicine
DX: I25.110 Atherosclerotic heart disease of native coronary artery with unstable angina pectoris (principal); I10 Essential (primary) hypertension; E11.9 Type 2 diabetes mellitus without complications; E78.00 Pure hypercholesterolemia, unspecified; Z95.1 Presence of aortocoronary bypass graft; Z86.73 Personal history of transient ischemic attack (TIA), and cerebral infarction without residual deficits; Z79.82 Long term (current) use of aspirin